=== PATIENT | female | born 1955 | race Caucasian/White ===

== ENCOUNTER 2017-05-16 15:33 | Emergency (ER) | payer OTHER ==
[~2017-05-16] VITALS: Ht 149.9 cm; Wt 67.5 kg
[2017-05-16 15:37] VITALS: TEMP 36.8; Ht 149.9 cm; Wt 67.5 kg
--- NOTE | 2017-05-16 16:33 | DIAGNOSTIC IMAGING REPORT ---
TWO VIEW CHEST CLINICAL HISTORY: Productive cough. FINDINGS: PA and lateral chest radiographs are obtained. No prior studies are available for comparison at the time of dictation. The heart is mildly enlarged and there is atherosclerotic calcification of the thoracic aorta. No airspace consolidation or pleural effusion is identified. There is no pneumothorax. The skeletal structures are osteopenic. Thickening and sclerosis is suggested in the clavicles bilaterally. Erosive change is seen in the distal right clavicle. Extensive fusion hardware and spinal rods are noted in the thoracic spine. IMPRESSION: 1. Cardiomegaly with no acute cardiopulmonary abnormality. 2. Osseous changes as above. Electronically signed by: Joey Roblero M.D. 05/16/2017 4:31 PM Dictated Date/Time: 05/16/2017 4:30 PM
[2017-05-16] MEDS ORDERED: BENZ1CAP90 PO (16:59)
--- NOTE | 2017-05-16 17:00 | EMERGENCY ROOM VISIT NOTE ---
ED Visit Note First contact with patient: 15:45 CHIEF COMPLAINT: Cough x3 weeks HISTORY OF PRESENT ILLNESS: This is a 61-year-old Q[place] female who presents to the emergency department today complaining of 3 week history of cough. Of note, the patient's primary language is Persian, and her cousin is translating for her in the room. The patient has had intermittent cough and sinus congestion. The patient did recently travel back to the [facility] from [place]. She came back 5 days ago. She states she was feeling better and [place], but when she returned here to the [facility], she began feeling ill again. The patient states she has not taken any OTC medication for her cough or congestion, and states she is experiencing shoulder and back pain with coughing. She states the coughing is also making her feel slightly short of breath. The patient denies any fever, she states the cough is productive of brown sputum. She denies any chills, body aches, nausea, vomiting, or other systemic symptoms. She states the symptoms do seem to be worsening since they initiated 3-4 weeks ago. The patient does have a history of chronic back pain due to a surgery which was performed in 2012. She states she is having increased pain in her neck, shoulders, and back associated with the coughing and her recent illness. She does not have doctors in the [facility] at this time, but would like a referral for someone to evaluate her spine. REVIEW OF SYSTEMS: A complete 10 point review of systems was reviewed with the patient with pertinent positives and negatives as per history of present illness. All else were negative. PMH: None MEDS: Synthroid, losartan, [place] ALLERGIES: Sulfa SOCIAL HISTORY: Patient lives locally with her cousin. She is from [place]. She denies drug, alcohol, tobacco use. PHYSICAL EXAM: VITALS: Vitals are noted on the nurse's note and reviewed by myself. Vital signs stable. O2 saturation 96% on room air GENERAL: This is a 61-year-old Q[place] female, in no acute distress, nondiaphoretic, well-developed well-nourished. SKIN: The skin was without rashes, erythema, edema, or bruising. There is no tenting of the skin. Capillary reflex less than 2 seconds. HEAD: Normocephalic atraumatic. EARS: External auditory canals clear, tympanic membranes pearly mane without erythema or effusion bilaterally. EYES: Pupils equal round and reactive to light and accommodation. Conjunctivae without injection, sclerae without icterus. Extraocular movements intact. NOSE: Patent, turbinates without inflammation or discharge. No sinus tenderness. MOUTH: Mucous membranes moist. Tonsils are not enlarged. Pharynx without erythema or exudate. Uvula midline. Airway patent. Tongue does not deviate. NECK: Supple without nuchal rigidity. No lymphadenopathy. No thyromegaly. Cervical spine is tender, which the patient states is chronic. No JVD. HEART: Regular rate and rhythm without murmurs gallops or rubs. LUNGS: Clear to auscultation bilaterally without wheezes, rales or rhonchi. No dullness to percussion. No retractions or accessory muscle use. MUSCULOSKELETAL: No muscle atrophy, erythema, or edema noted. Full range of motion without joint tenderness in all extremities. No tenderness to palpation. Normal gait. Strength 5/5 throughout. NEURO: Patient was alert and oriented to person place and time. Normal sensation to light and sharp touch. No focal neurological deficits. RADIOLOGY: TWO VIEW CHEST CLINICAL HISTORY: Productive cough. FINDINGS: PA and lateral chest radiographs are obtained. No prior studies are available for comparison at the time of dictation. The heart is mildly enlarged and there is atherosclerotic calcification of the thoracic aorta. No airspace consolidation or pleural effusion is identified. There is no pneumothorax. The skeletal structures are osteopenic. Thickening and sclerosis is suggested in the clavicles bilaterally. Erosive change is seen in the distal right clavicle. Extensive fusion hardware and spinal rods are noted in the thoracic spine. IMPRESSION: 1. Cardiomegaly with no acute cardiopulmonary abnormality. 2. Osseous changes as above. Electronically signed by: Joey Roblero M.D. 05/16/2017 4:31 PM Dictated Date/Time: 05/16/2017 4:30 PM EMERGENCY DEPARTMENT COURSE: The patient was seen and evaluated as above. She presents today complaining of 3-4 week long history of productive cough. The patient did recent travel to [place], when she was feeling better. Her symptoms worsened when she returned back to [place]. Due to the patient's history of productive coughing times. 4 weeks, a chest x-ray was ordered. This did not reveal any signs of pneumonia. This did show a significant osseous changes as well as some cardiomegaly, and these findings were reviewed with the patient and her cousin at bedside. The patient did request an orthopedic surgeon referral, and I provided her with the contact information and advised her to schedule the appointment. At this time, I feel the patient' s symptoms are related to a viral tracheobronchitis, do not warrant antibiotics based on her physical examination and history. I encouraged patient to use OTC medication, and to provide her with a prescription for Tessalon Perles and albuterol inhaler. The patient and her cousin were in agreement with the assessment and plan, and they were discharged home in good condition. I did speak with Dr. Brito regarding the patient's symptoms and examination. He was in agreement with the assessment and plan. I attest that I have personally reviewed the patient's current medication list. Blood Pressure Screening: Patient was found to have a slightly elevated blood pressure due to circumstances. I do not believe that the patient requires hypertension monitoring. DIFFERENTIAL DIAGNOSIS: Bronchitis, upper respiratory infection, pneumonia, trachebronchitis, acute sinusitis, acute pharyngitis, malignancy, and others DIAGNOSIS: Acute tracheobronchitis Current/Historical Medications Scheduled PRN Albuterol Hfa (Ventolin Hfa), 2 PUFFS INH QID PRN for Cough Benzonatate (Tessalon Perles), 200 MG PO TID PRN for Cough Vital Signs Date Time Temp Pulse Resp B/P (MAP) Pulse Ox O2 Delivery O2 Flow Rate FiO2 05/16/17 17:03 89 20 150/94 95 05/16/17 15:37 36.8 81 20 148/72 96 Room Air Departure Information Impression Primary Impression: Tracheobronchitis Dispostion Home / Self-Care Condition GOOD Prescriptions Albuterol Hfa (VENTOLIN HFA) 200 Puffs/69161 Mcg Aers 2 PUFFS INH QID Y for Cough, #1 INHALER Prov: Shayla Foster PA-C 05/16/17 Benzonatate (Tessalon Perles) 200 Mg Cap 200 MG PO TID Y for Cough, #30 CAP Prov: Shayla Foster PA-C 05/16/17 Referrals No Doctor, Assigned (PCP) Hussain Garcia, D.O. Patient Instructions ED Upper Resp Infec No Abx Tx, My [facility] Additional Instructions You were seen and evaluated in the emergency department today for an upper respiratory infection/tracheobronchitis (Chest cold). I do feel that based on your symptoms, and the duration of illness, this is likely viral in nature. As discussed, antibiotics will not treat viral illness. Use the albuterol inhaler for wheezing. 1-2 puffs four times daily as needed. You have been given benzonatate (Tessalon Pearles) to be used for coughing. These should be taken 1 capsule up to 3 times per day as needed for coughing. Do not take this medication more than prescribed. You may use this medication in addition to OTC cough medications. For your sore throat, you may use a 1:1 mixture of liquid Benadryl and liquid Maalox. Gargle and spit this mixture. It will help to soothe the throat and provide some relief. Drink warm tea with honey and lemon, as this will also help to soothe the throat. Gargle with salt water frequently. As discussed, you should take OTC Mucinex and/or Sudafed for your symptoms. Please do not exceed the recommended daily dosages. Ibuprofen(Motrin, Advil) may be used for fever or pain. Use 600mg every six hours as needed. Take with food. Avoid using more than 2400mg in a 24 hour period. Do not use 2400mg per day for more than three consecutive days without physician direction. Prolonged inappropriate use can lead to stomach upset or ulcers. You may take Naproxen 1-[address] tablets twice daily in place of ibuprofen. This medication will help with the swelling in your sinuses. (AND/OR) Acetaminophen(Tylenol) may be used for fever or pain. Use 1000mg every six hours as needed. Avoid using more than 3000mg in a 24 hour period. For congestion, you may use Flonase OTC. You may want to consider zinc, echinacea, and vitamin C to help boost your immunity. Please get plenty of rest and drink plenty of fluids. Please return or follow-up with your PCP in 1 week if you are not experiencing any improvement in your symptoms. Return to the emergency department for coughing up blood, difficulty breathing, chest pain, worsening symptoms, or for other concerns. Contact orthopedics regarding your chronic spine/shoulder pain for evaluation of these concerns here in the [place].
[2017-05-16 17:03] VITALS: BP 150/94; PULSE 89; O2SAT 95
[2017-05-16] MEDS ORDERED: VNTHFA/IN INH (17:08)
--- NOTE | 2017-05-16 17:08 | EMERGENCY ROOM VISIT NOTE ---
ED Visit Note First contact with patient: 15:45 I did evaluate and examine this patient myself. I did guide management for the patient. I agree with the APC's assessment as discussed. Please see the APC's dictation for further details. I did independently review the x-rays. There is no evidence of pneumonia. I did discuss the test results with the patient and her daughter. At this time I did not feel antibiotic therapy would be beneficial to her. I did recommend albuterol MDI as needed for cough and follow up with a regular physician. She was also referred to orthopedics for ongoing back issues with her prior surgery.
== END 2017-05-16 17:24 | disposition home or self-care (01) ==
LOC: C.EDB 15:35 → C.EDD 17:24
DX: J40 Bronchitis, not specified as acute or chronic (principal); M54.9 Dorsalgia, unspecified; G89.29 Other chronic pain

== ENCOUNTER → 2017-06-22 | Outpatient (CLI) | payer OTHER ==
[~2017-06-22] MED LIST: BENZ1CAP90 PO; VNTHFA/IN INH
--- NOTE | 2017-06-22 18:06 | DIAGNOSTIC IMAGING REPORT ---
RIGHT SHOULDER 3 VIEWS CLINICAL HISTORY: Right shoulder pain. FINDINGS: 3 views of the right shoulder are obtained. No prior studies are available for comparison at the time of dictation. The skeletal structures are osteopenic. No fracture is seen. The glenohumeral articulation appears maintained noting arthritic change along the inferior aspect of the glenoid. Calcific tendinopathy is noted. There is dense sclerotic change present in the right clavicle. There has likely been resorptive change of the distal clavicle with widening of the acromioclavicular joint. The left clavicle also appears sclerotic. Extensive cervicothoracic spinal rods are in place. Imaged right lung parenchyma appears clear. The overlying soft tissues are within normal limits. IMPRESSION: 1. There is no fracture or shoulder dislocation. 2. Osteopenia and arthritic change as above. 3. Abnormality of the right clavicle with widening of the AC joint as above. Electronically signed by: Joey Roblero M.D. 06/22/2017 6:04 PM Dictated Date/Time: 06/22/2017 6:03 PM
[2017-06-22 18:14] LABS: BLOOD UREA NITROGEN 13 mg/dl (7-18); CALCIUM 9.3 mg/dl (8.5-10.1); CARBON DIOXIDE 31 mmol/L (21-32); CREATININE 0.48 mg/dl (0.60-1.20); GLUCOSE 93 mg/dl (70-99); POTASSIUM 3.8 mmol/L (3.5-5.1); SODIUM 140 mmol/L (136-145)
--- NOTE | 2017-06-22 18:21 | DIAGNOSTIC IMAGING REPORT ---
CERVICAL SPINE 5 VIEWS HISTORY: NECK PAIN COMPARISON: None. FINDINGS: The cervical spine is visualized from C1 through the superior endplate of T1. There is no fracture. No subluxation. Mild reversal of the normal lordotic curvature. There is extensive posterior decompression and fusion throughout the majority of the cervical spine and the visualized thoracic spine. This originates at the C3 level and extends inferiorly. There are pedicle screws and rods throughout the fused cervical and thoracic spine. The hardware appears intact. The cervical spine facets are fused. Disc spaces are relatively preserved within the cervical spine. Suggestion of a few mild to moderate compression deformities within the mid to lower thoracic spine. Prevertebral soft tissues and the atlantodens interval are intact. IMPRESSION: 1. No acute fractures or subluxation within the cervical spine. 2. Extensive posterior fusion and decompression throughout the majority of the cervical and thoracic spine. 3. Mild/moderate compression deformities within the mid to lower thoracic spine which are age indeterminate. Electronically signed by: Osbaldo De La Paz M.D. 06/22/2017 6:19 PM Dictated Date/Time: 06/22/2017 6:15 PM
== END | disposition home or self-care (01) ==
LOC: C.RAD 16:59
PROVIDERS: ATTEND Nurse Practitioner Adult Health
DX: E03.9 Hypothyroidism, unspecified (principal); I10 Essential (primary) hypertension; M54.2 Cervicalgia; M25.511 Pain in right shoulder